=== PATIENT | male | born 1965 | race Caucasian/White ===

== ENCOUNTER → 2016-06-19 | Outpatient (CLI) | payer BC ==
[~2016-06-19] MED LIST: MULTTAB58 PO; OXYC-57 PO
[2016-06-19 10:00] LABS: BASO % 0.8 %; BASO ABS # 0.04 K/uL (0-0.2); COMPLETE YES; EOS % 2.1 %; HEMATOCRIT 43.9 % (42-52); IG% 0.2 %; LYMPH % 31.3 %; LYMPH ABS # 1.66 K/uL (1.2-3.4); MEAN CELL VOLUME 86.1 fL (80-100); MEAN CORPUSCULAR HEMOGLOBIN 29.8 pg (25-34); MEAN CORPUSCULAR HGB CONC 34.6 g/dl (32-36); MEAN PLATELET VOLUME 11.1 fL (7.4-10.4); MONO % 11.1 %; NEUT % 54.5 %; PLATELET COUNT 156 K/uL (130-400)
[2016-06-19 10:50] LABS: BLOOD UREA NITROGEN 14 mg/dl (7-18); BUN/CREATININE RATIO 16.2 (10-20); CARBON DIOXIDE 28 mmol/L (21-32); CHLORIDE 104 mmol/L (98-107); CREATININE 0.89 mg/dl (0.60-1.40); GLUCOSE 100 mg/dl (70-99); POTASSIUM 4.2 mmol/L (3.5-5.1); SODIUM 141 mmol/L (136-145)
== END | disposition home or self-care (01) ==
LOC: C.CPL 09:21
PROVIDERS: ATTEND Surgery
DX: K40.90 Unilateral inguinal hernia, without obstruction or gangrene, not specified as recurrent (principal); Z01.812 Encounter for preprocedural laboratory examination

== ENCOUNTER → 2016-06-26 | Day surgery (SDC) | payer BC ==
[2016-06-15 10:16] VITALS: Ht 170.2 cm; Wt 88.6 kg
[~2016-06-26] VITALS: Ht 170.2 cm; Wt 88.6 kg
[~2016-06-26] MED LIST changes: +ATROPINE SULFATE 0.1 MG/ML 5ML SYR IV PRN; +BACITRACIN 50000 UNIT VIAL ONE; +CEFAZOLIN SOD 1 GM VIAL ONE; +DEXAMETHASONE SOD INJ 4 MG/ML VIAL IV PRN; +DEXAMETHASONE SOD INJ 4 MG/ML VIAL ONE; +EpHEDrine SULFATE INJ 50 MG/ML AMP IV PRN; +EpHEDrine SULFATE INJ 50 MG/ML AMP ONE; +FENTANYL CITRATE INJ 50 MCG/1 ML 2 ML VIAL IV PRN; +FENTANYL CITRATE INJ 50 MCG/1 ML 2 ML VIAL ONE; +GLYCOPYRROLATE INJ 0.2 MG/ML VIAL ONE; +HYDROmorphone INJ 2 MG/ML SYR/VIAL IV PRN; +KETOROLAC TROMETHAMINE 30 MG/ML VIAL IV. PRN; +LABETALOL HCL IV 5 MG/ML 20ML IV PRN; +LACTATED RINGER'S 1000ML 1,000 ML IV ONE; +LACTATED RINGER'S 1000ML 1,000 ML IV SCH; +LIDOCAINE HCL 2% 2 ML VIAL (20MG/ML) ONE; +METOCLOPRAMIDE HCL INJ 5 MG/ML 2 ML VIAL IV PRN; +MIDAZOLAM HCL 1 MG/ML 2ML VIAL ONE; +MoRPHine SULFATE 10 MG/ML CARP/VIAL IV PRN; +NEOSTIGMINE METHYLSULFATE 5 MG/5 ML SYR ONE; +ONDANSETRON INJ 2 MG/ML 2 ML VIAL IV PRN; +ONDANSETRON INJ 2 MG/ML 2 ML VIAL ONE; +OXYCODONE/ACETAMINOPHEN 5-325 TAB PO PRN; +PHENYLEPHRINE 100MCG/ML 5ML SYR IV PRN; +PROPOFOL IV EMULSION 10 MG/ML 20 ML VIAL IV ONE; +ROCURONIUM BROMIDE 10 MG/ML 5 ML VIAL ONE; +SODIUM CHLORIDE 0.9% INJ 10 ML VIAL ONE
--- NOTE | 2016-06-26 06:35 | History & Physical Bridge Note ---
H&P Re-Evaluation Bridge Note: I have examined the patient, reviewed the History & Physical and in the interval since the performance of the History & Physical I have noted the following changes of clinical significance: No changes noted pt marked SO at bedside
[2016-06-26] MEDS: BUPIVACAINE 0.5 % 5 MG/1 ML MPF 30ML VIAL ONE ×2 (07:20→08:01)
--- NOTE | 2016-06-26 08:08 | [facility] Post Operative Brief Note ---
Immediate Operative Summary Operative Date Jun 26, 2016. Pre-Operative Diagnosis Left Inguinal Hernia Post-Operative Diagnosis left direct inguinal hernia Procedure(s) Performed Open Large Left Inguinal Hernia Repair With Marlex Mesh Surgeon Dr. Murry Size Tester Surgeon(s) None Estimated Blood Loss 5 ml Findings large left direct inguinal hernia Specimens None
--- NOTE | 2016-06-26 08:14 | Discharge Instructions ---
Discharge Instructions Visit Reason for Visit: Left Inguinal Hernia Discharge Discharge Diagnosis / Problem: s/p left direct ing hernia repair with mesh ( open) Discharge Goals Goal(s): Decrease discomfort Activity Recommendations Lifting Limitations: no more than 10 pounds Exercise/Sports Limitations: none May Resume Sexual Activity: when tolerated Shower/Bathe: no limitations Driving or Machine Use: for one week Anesthesia . Post Anesthesia Instructions: If you have had General Anesthesia or IV Sedation: * Do not drive today. * Resume driving when surgeon permits. * Do not make important decisions or sign legal documents today. * Call surgeon for: 1. Temperature elevations greater than 101 degrees F. 2. Uncontrollable pain. 3. Excessive bleeding. 4. Persistent nausea and vomiting. 5. Medication intolerance (nausea, vomiting or rash). * For nausea and vomiting use only clear liquids such as: tea, soda, bouillon until nausea subsides, then gradually increase diet as tolerated. * If you have any concerns or questions, call your surgeon's office. If physician is unavailable and it is an emergency, call 911 or go to the nearest emergency room. . Instructions / Follow-Up Instructions / Follow-Up call [phone] for any problems return office 1 week Procedures Procedures Performed: Open Large Left Inguinal Hernia Repair With Marlex Mesh Medical Emergencies . Who to Call and When: Medical Emergencies: If at any time you feel your situation is an emergency, please call 911 immediately. . Non-Emergent Contact . . "Provider Documentation" section prepared by Robby Murry.
[2016-06-26 09:05] VITALS: TEMP 36.7
--- NOTE | 2016-06-26 09:23 | Anesthesia Progress Nt - [facility] ---
Anesthesia Post Op Note Date & Time Jun 26, 2016 at 09:23 Vital Signs Pain Intensity: 4 Vital Signs Past 12 Hours Date Time Temp Pulse Resp B/P Pulse Ox O2 Delivery O2 Flow Rate FiO2 06/26/16 09:05 36.7 70 14 123/81 97 Room Air 06/26/16 08:55 36.5 06/26/16 08:54 60 18 94 06/26/16 08:54 60 18 06/26/16 08:53 125/75 06/26/16 08:49 60 17 92 06/26/16 08:49 60 17 06/26/16 08:48 135/76 06/26/16 08:44 60 12 93 06/26/16 08:44 59 12 06/26/16 08:43 130/77 06/26/16 08:39 60 13 94 06/26/16 08:39 60 13 06/26/16 08:38 115/70 06/26/16 08:34 72 22 96 06/26/16 08:34 72 22 06/26/16 08:33 125/74 06/26/16 08:31 Room Air 06/26/16 08:29 66 6 06/26/16 08:29 66 6 100 06/26/16 08:28 130/75 06/26/16 08:24 69 9 100 06/26/16 08:24 69 9 06/26/16 08:23 123/77 06/26/16 08:19 78 15 100 06/26/16 08:19 78 15 06/26/16 08:18 134/75 06/26/16 08:14 84 16 100 06/26/16 08:14 84 16 06/26/16 08:12 36.4 85 16 142/87 100 Diffusion Mask 5 06/26/16 06:38 36.6 57 122/76 96 Room Air Notes Mental Status: alert / awake / arousable, participated in evaluation Pt Amnestic to Procedure: Yes Nausea / Vomiting: adequately controlled Pain: adequately controlled Airway Patency, RR, SpO2: stable & adequate BP & HR: stable & adequate Hydration State: stable & adequate Anesthetic Complications: no major complications apparent
--- NOTE | 2016-06-26 09:24 | OPERATIVE REPORT ---
DATE OF OPERATION: 06/26/2016 SURGEON: Dr. Murry. PREOPERATIVE DIAGNOSIS: Left inguinal hernia. POSTOPERATIVE DIAGNOSIS: Large direct inguinal hernia. PROCEDURE: Open repair of left indirect inguinal hernia with Marlex mesh reinforcement. SUMMARY: The patient was brought into the operating room theater. Under general anesthesia, the left lower quadrant prepped with Betadine scrub and solution and properly draped. 5% Marcaine without epinephrine was used to infiltrate 2 fingerbreadths medial, anterior, superior iliac crest, preemptive local. Then an incision was made parallel to the inguinal ligament deep into subcutaneous tissue. Some larger vein ligated with 2-0 silk. We went onto the external oblique, elevated the external oblique to the external ring with a finger and then freed up all the fatty tissue around it, sufficient enough with more local underneath the external oblique. We then was opened along the course of its fibers. The nerve identified and retracted superiorly underneath hemostats. It was identified the patient had an incarcerated tissue in the external oblique and external ring. Once we were able to elevate this up from the floor, patient had a significant amount of fatty tissue that freed up from the cord structures and actually was all a direct area going down to the external ring. There was no indirect component. We returned this direct content in the retroperitoneal by using some fibers and using 3-0 interrupted silk sutures. Once we completed that area and we had the bulk of the fatty tissue which protruded almost about 6 or 7 [address] the way into the canal. We then brought a sheet of Marlex mesh and onlay down the symphysis pubis, shelving portion went above the conjoined tendon and reconstruct the internal ring that could only accommodate the tip of a hemostat. The nerve was placed along the cord again. The internal ring was checked and there was one area that seemed to be a little bit wider, we used an interrupted 3-0 silk suture on the mesh to reinforce and close it tighter. We irrigated the area. The external oblique was then closed completely on top of the mesh and the cord structure with 3-0 interrupted silk suture, subcutaneous tissue 3-0 Dexon and sujit for skin edges. Dressing was applied. The procedure was tolerated well by the patient. Estimated blood loss approximately 5 mL. The patient was taken to the recovery room in good condition. I attest to the content of the Intraoperative Record and any orders documented therein. Any exceptio ns are noted below.
[2016-06-26 09:48] VITALS: BP 144/84; PULSE 52; O2SAT 97
== END | disposition home or self-care (01) ==
LOC: X.SURG 06:23
PROVIDERS: ATTEND Surgery
DX: K40.90 Unilateral inguinal hernia, without obstruction or gangrene, not specified as recurrent (principal); J06.9 Acute upper respiratory infection, unspecified; E78.00 Pure hypercholesterolemia, unspecified; R73.9 Hyperglycemia, unspecified; Z98.890 Other specified postprocedural states

== ENCOUNTER 2019-12-09 13:13 | Inpatient (IN) ==
--- OUTSIDE RECORDS SUMMARY | 2019-12-09 13:14 | External Medical Summary | Continuity of Care Document ---
:1965 Author Name Robson Lyles, Provider Address Unavailable Unavailable , Care Team Providers Name Role Phone Jeanmarie Lyles, [email or web address] Leon Unavailable Unavailable Assessments Assessed Problems:Umbilical herniaVentral hernia Problems Encounter for screening for diabetes mellitus (V77.1) (Z13.1 ) Ventral hernia (553.20) (K43.9) Umbilical hernia (553.1) (K42.9) Inguinal hernia, left (550.90) (K40.90) Encounter for screening for lipoid disorders (V77.91) (Z13.2 20) Hyperglycemia (790.29) (R73.9) Hypercholesterolemia (272.0) (E78.00) Acute upper respiratory infection (465.9) (J06.9) Influenza vaccine needed (V04.81) (Z23) Allergies and Adverse Reactions No Known Drug Allergies (Allergy) Medications [place] 3 1000 MG Oral Capsule; daily Star t: 07-Mar-2018 Refills: 0 Multi-Vitamin Oral Tablet; TAKE 1 TABLET DAILY. Start: 27-Oct-2013 Refills: 0 Procedures Influenza vaccine needed History of Inguinal Hernia Repair Status : Completed 26-Jun-2016 0:00 Immunizations Influenza On: 03-Apr-2010 15:48 Lot #: [id number], [employer] Influenza On: 27-Mar-2011 9:50 Lot #: [id number], [employer] Tdap (Adacel) On: 31-Mar-2011 17:25 Lot #: [id number], [employer] Pneumococcal polysaccharide vaccine, 23 valent On: 17:24 Lot #: [id number], [employer] Influenza On: 07-Jun-2012 9:09 Lot #: [id number], [employer] Influenza On: 22-Mar-2014 Family History uncle Family history of Colon Cancer (V16.0) Status: Active Mother Family history of Arthritis (V17.7) Status: Active Father Family history of Diabetes Mellitus (V18.0) Status: Active Family history of Renal cell cancer (189.0) (C64.9) Status: Active FH: CABG (coronary artery bypass surgery) (V17.3) (Z82.49) S tatus: Active Family history of Polyps Of The Sigmoid Colon Status: Active Family history of cerebrovascular accident (CVA) (V17.1) (Z8 2.3) Status: Active Brother Family history of Family Health Status Of Brother - Good Sta tus: Active Sister Family history of Family Health Status Of Sister - Good Stat us: Active Social History - Smoking Status Never smoked tobacco Plan of Treatment Planned Observations Planned Goals not documented Results No Known Results Results not documented Encounters Appointment; Robby Murry M.D. 07-Mar-2018 9:50 Encounter Diagnosis: Problem not documented
--- OUTSIDE RECORDS SUMMARY | 2019-12-09 13:15 | External Medical Summary | Continuity of Care Document ---
:1965 Author Name Robson Lyles, Provider Address Unavailable Unavailable , Care Team Providers Name Role Phone Jeanmarie Lyles, [email or web address] Leon Unavailable Unavailable Assessments Assessed Problems:Umbilical herniaVentral hernia Problems Influenza vaccine needed (V04.81) (Z23) Acute upper respiratory infection (465.9) (J06.9) Hypercholesterolemia (272.0) (E78.00) Hyperglycemia (790.29) (R73.9) Encounter for screening for lipoid disorders (V77.91) (Z13.2 20) Inguinal hernia, left (550.90) (K40.90) Encounter for screening for diabetes mellitus (V77.1) (Z13.1 ) Umbilical hernia (553.1) (K42.9) Ventral hernia (553.20) (K43.9) Allergies and Adverse Reactions No Known Drug Allergies (Allergy) Medications Multi-Vitamin Oral Tablet; TAKE 1 TABLET DAILY. Start: 27-Oct-2013 Refills: 0 [place] 3 1000 MG Oral Capsule; daily Star t: 07-Mar-2018 Refills: 0 Procedures Influenza vaccine needed History of Inguinal Hernia Repair Status : Completed 26-Jun-2016 0:00 Immunizations Influenza On: 03-Apr-2010 15:48 Lot #: [id number], [employer] Influenza On: 27-Mar-2011 9:50 Lot #: [id number], [employer] Tdap (Adacel) On: 31-Mar-2011 17:25 Lot #: [id number], [employer] Pneumococcal polysaccharide vaccine, 23 valent On: 17:24 Lot #: [id number], [employer] Influenza On: 07-Jun-2012 9:09 Lot #: [id number], [employer] Influenza On: 22-Mar-2014 Family History [...]
[2019-12-09] MEDS ORDERED: ASPIRIN CHEW 324 MG PO STA (13:27)
[2019-12-09] MEDS ORDERED: NITROGLYCERIN SL 0.4 MG/TAB TAB SL PRN (13:27)
[2019-12-09] MEDS ORDERED: TICAGRELOR 90 MG TAB PO ONE (13:27)
[2019-12-09] MEDS ORDERED: NITROGLYCERIN SL 0.4 MG/TAB TAB ONE (13:28)
--- NOTE | 2019-12-09 13:35 | Emergency Department Note ---
History of Present Illness General Chief complaint: Shortness of Breath/Dyspnea Stated complaint: short of breath - tighness in chest Time Seen by Provider: 12/09/19 13:19 Source: patient Mode of arrival: ambulatory Limitations: no limitations History of Present Illness Provider complaint: Chest pain Maximum Pain Intensity: 2 This is a 54-year-old male who presents to the ED with a chief complaint of chest pain. The patient states that he started having chest pain this morning intermittently around 8:30 AM. 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 He has some associated shortness of breath. He describes the feelings in his chest like a full sensation and chest tightness. The patient denies any past medical history. Denies taking medicat ions. He denies smoking. The patient states that he did have some exertional chest discomfort a couple of days ago when he was taking a walk. His vital signs are normal. Home Medications Home Medications Medication Instructions Recorded Confirmed Type multivitamin 1 tab PO QAM 12/09/19 12/09/19 History Allergies Allergy/AdvReac Type Severity Reaction Status Date / Time No Known Allergies Allergy Unverified 06/26/16 06:46 Past Med/Surg History Social History Feels Safe at Home: Yes Smoking Status: Never smoker Review of Systems A total of 10 systems reviewed and were otherwise negative Physical Exam Vital Signs Vital Signs - 24 hr 12/09/19 13:14 12/09/19 13:24 12/09/19 13:26 Temperature 36.6 C Temperature Source Oral Pulse Rate 62 66 61 Pulse Rate from SpO2 Sensor 65 59 L Respiratory Rate 16 16 17 Blood Pressure 140/92 146/99 H Blood Pressure Mean 108 116 Pulse Oximetry 97 95 97 Oxygen Delivery Method Room Air Sepsis Recent Fever Within 48 Hours No Sepsis New/Unexplained Change in Mental Status No Sepsis Action Taken by Nursing No Action Required 12/09/19 13:30 Temperature Temperature Source Pulse Rate 67 Pulse Rate from SpO2 Sensor Respiratory Rate 18 Blood Pressure Blood Pressure Mean Pulse Oximetry Oxygen Delivery Method Sepsis Recent Fever Within 48 Hours Sepsis New/Unexplained Change in Mental Status Sepsis Action Taken by Nursing CONSTITUTIONAL/VITAL SIGNS: Reviewed / noted above. GENERAL: Non-toxic in appearance. INTEGUMENTARY: Warm, dry, and [place]. HEAD: Normocephalic. EYES: without scleral icterus or trauma. ENT/OROPHARYNX: clear and moist. LYMPHADENOPATHY/NECK: Is supple without lymphadenopathy or meningismus. RESPIRATORY: Lungs clear and equal. CARDIOVASCULAR: Regular rate and rhythm. GI/ABDOMEN: Soft and nontender. No organomegaly or pulsatile mass. No rebound or guarding. Normal bowel sounds. EXTREMITIES: Warm and well perfused. BACK: No CVA tenderness. NEUROLOGICAL: Intact without focal deficits. PSYCHIATRIC: normal affect. MUSCULOSKELETAL: Normally developed with good muscle tone. TRIAGE NURSING DOCUMENTATION REVIEWED. Course Administered Medications Nitroglycerin (Nitrostat) 0.4 mg SL UD PRN PRN Reason: Chest Pain Stop: 01/08/20 13:26 Last Admin: 12/09/19 13:30 Dose: 0.4 mg Documented by: [id number] Discontinued Medications Aspirin (Aspirin) 324 mg PO NOW STA Stop: 12/09/19 13:28 Last Admin: 12/09/19 13:31 Dose: 324 mg Documented by: [id number] Atropine Sulfate (Atropine Sulfate) Confirm Administered Dose 1 mg IV .STK-MED ONE Stop: 12/09/19 13:58 Last Admin: 12/09/19 14:20 Dose: 1 mg Documented by: [id number] Heparin Sodium/Sodium Chloride (Heparin/Nss 1000 Unit/500ml Flush Bag) Confirm Administered Dose 3,000 units IV .STK-MED ONE Stop: 12/09/19 13:40 Last Admin: 12/09/19 14:19 Dose: 3,000 units Documented by: [id number] Nicardipine HCl (Cardene) Confirm Administered Dose 25 mg .ROUTE .STK-MED ONE Stop: 12/09/19 13:39 Last Admin: 12/09/19 14:19 Dose: 25 mg Documented by: [id number] Nitroglycerin (Nitrostat) Confirm Administered Dose 0.4 mg .ROUTE .STK-MED ONE Stop: 12/09/19 13:29 Last Admin: 12/09/19 13:30 Dose: Not Given Documented by: [id number] Nitroglycerin/Dextrose (Nitroglycerin/D5w 100 Mcg/Ml 20ml Syringe) Confirm Administered Dose 2,000 mcg .ROUTE .STK-MED ONE Stop: 12/09/19 13:40 Last Admin: 12/09/19 14:20 Dose: 2,000 mcg Documented by: [id number] Ticagrelor (Brilinta) 180 mg PO ONE ONE Stop: 12/09/19 13:28 Last Admin: 12/09/19 13:31 Dose: 180 mg Documented by: [id number] Critical Care Time Critical Care Time: Yes Total Critical Care Time: 30 I have personally spent 30 minutes of critical care time in the direct management of this patient. This includes bedside care, interpretation of diagnostic studies, and testing, discussion with consultants, patient, and [facility] members, and other required patient management activities. This 30 minutes is in excess of all separately billable procedures. Medical Decision Making Differential Diagnosis The differential that was considered includes acute myocardial infarction, acute coronary syndrome, myocarditis, pericarditis, pericardial effusions /tamponade, esophageal perforation, thoracic aortic dissection, pulmonary embolism, pneumonia, pneumothorax, pancreatitis, shingles, acute cholecystitis, perforated abdominal viscus. Medical Records Attestation: I reviewed the patient's medical records. Home Medications Current Medication List: was personally reviewed by me Laboratory Data Attestation: I reviewed the patient's lab results. Result diagrams: 12/09/19 13:29 12/09/19 13:29 Lab Results 12/09/19 12/09/19 12/09/19 Range/Units 13:29 13:29 13:29 WBC 7.12 (4.8-10.8) K/uL RBC 5.01 (4.7-6.1) M/uL Hgb 15.0 (14.0-18.0) g/dL POC Hgb (14.0-18.0) g/dl Hct 43.3 (42-52) % POC Hct (42-52) % MCV 86.4 (80-100) fL MCH 29.9 (25-34) pg MCHC 34.6 (32-36) g/dL RDW Std Deviation 41.4 (36.4-46.3) fL RDW Coeff of Glenny 13.1 (11.5-14.5) % Plt Count 155 (130-400) K/uL MPV 10.4 (7.4-10.4) fL Immature Gran % (Auto) 0.4 % Neut % (Auto) 59.6 % Lymph % (Auto) 26.8 % [place] % (Auto) 10.5 % Eos % (Auto) 2.4 % Baso % (Auto) 0.3 % Neut # (Auto) 4.24 (1.4-6.5) K/uL Lymph # (Auto) 1.91 (1.2-3.4) K/uL [place] # (Auto) 0.75 H (0.11-0.59) K/uL Eos # (Auto) 0.17 (0-0.5) K/uL Baso # (Auto) 0.02 (0-0.2) K/uL Immature Gran # (Auto) 0.03 H (0.00-0.02) K/uL PT 10.6 (9.0-12.0) Seconds INR 1.0 (0.9-1.1) APTT 21.8 (21.0-31.0) Seconds PTT Ratio 0.8 POC Sodium (135-144) mmol/L Sodium 140 (136-145) mmol/L POC Potassium (3.3-5.0) mmol/L Potassium 3.9 (3.5-5.1) mmol/L POC Chloride (101-112) mmol/L Chloride 107 (98-107) mmol/L Carbon Dioxide 28 (21-32) mmol/L POC Total CO2 (24-31) mmol/L Anion Gap 5.0 (3-11) POC Anion Gap (16-25) mmol/L POC BUN (7-18) mg/dl BUN 14 (7-18) mg/dl Creatinine 1.00 (0.6-1.4) mg/dl POC Creatinine (0.6-1.3) mg/dl Est Cr Clr Drug Dosing 91.2 ml/min Est GFR ( Amer) 97.8 Est GFR (Non-Af Amer) 84.4 BUN/Creatinine Ratio 13.8 (10-20) Glucose 105 H (70-99) mg/dl POC Glucose (other) (70-99) mg/dl Calcium 9.3 (8.5-10.1) mg/dl POC Ioniz Calcium Estela (1.12-1.32) mmol/l Total Bilirubin 0.8 (0.2-1) mg/dl AST 19 (15-37) U/L ALT 35 (12-78) U/L Alkaline Phosphatase 55 (45-117) U/L Total Creatine Kinase 154 (39-308) U/L CK-MB (CK-2) 2.2 (0.5-3.6) ng/ml CK/CKMB % Calc 1.4 (0-3.0) POC Troponin I (0-0.045) ng/ml Troponin I 0.092 H* (0-0.045) ng/ml Total Protein 7.6 (6.4-8.2) gm/dl Albumin 4.3 (3.4-5.0) gm/dl Globulin 3.3 (2.5-4.0) gm/dl Albumin/Globulin Ratio 1.3 (0.9-2) 12/09/19 12/09/19 Range/Units 13:40 13:41 WBC (4.8-10.8) K/uL RBC (4.7-6.1) M/uL Hgb (14.0-18.0) g/dL POC Hgb 13.9 L (14.0-18.0) g/dl Hct (42-52) % POC Hct 41 L (42-52) % MCV (80-100) fL MCH (25-34) pg MCHC (32-36) g/dL RDW Std Deviation (36.4-46.3) fL RDW Coeff of [place]enny (11.5-14.5) % Plt Count (130-400) K/uL MPV (7.4-10.4) fL Immature Gran % (Auto) % Neut % (Auto) % Lymph % (Auto) % [place] % (Auto) % Eos % (Auto) % Baso % (Auto) % Neut # (Auto) (1.4-6.5) K/uL Lymph # (Auto) (1.2-3.4) K/uL [place] # (Auto) (0.11-0.59) K/uL Eos # (Auto) (0-0.5) K/uL Baso # (Auto) (0-0.2) K/uL Immature Gran # (Auto) (0.00-0.02) K/uL PT (9.0-12.0) Seconds INR (0.9-1.1) APTT (21.0-31.0) Seconds PTT Ratio POC Sodium 142 (135-144) mmol/L Sodium (136-145) mmol/L POC Potassium 4.0 (3.3-5.0) mmol/L Potassium (3.5-5.1) mmol/L POC Chloride 104 (101-112) mmol/L Chloride (98-107) mmol/L Carbon Dioxide (21-32) mmol/L POC Total CO2 26 (24-31) mmol/L Anion Gap (3-11) POC Anion Gap 17.0 (16-25) mmol/L POC BUN 14 (7-18) mg/dl BUN (7-18) mg/dl Creatinine (0.6-1.4) mg/dl POC Creatinine 1.0 (0.6-1.3) mg/dl Est Cr Clr Drug Dosing ml/min Est GFR ( Amer) Est GFR (Non-Af Amer) BUN/Creatinine Ratio (10-20) Glucose (70-99) mg/dl POC Glucose (other) 111 H (70-99) mg/dl Calcium (8.5-10.1) mg/dl POC Ioniz Calcium [place] 1.21 (1.12-1.32) mmol/l Total Bilirubin (0.2-1) mg/dl AST (15-37) U/L ALT (12-78) U/L Alkaline Phosphatase (45-117) U/L Total Creatine Kinase (39-308) U/L CK-MB (CK-2) (0.5-3.6) ng/ml CK/CKMB % Calc (0-3.0) POC Troponin I 0.06 H (0-0.045) ng/ml Troponin I (0-0.045) ng/ml Total Protein (6.4-8.2) gm/dl Albumin (3.4-5.0) gm/dl Globulin (2.5-4.0) gm/dl Albumin/Globulin Ratio (0.9-2) Imaging Data Attestation: I personally reviewed and interpreted this imaging study as follows: My Impression: Chest x-ray: Per my review there is no pneumothorax, pneumonia or acute cardiopulmonary process. Radiologist's Impression: SINGLE VIEW CHEST CLINICAL HISTORY: chest pain. FINDINGS: An AP, portable, upright chest radiograph is compared to study dated 07/08/2010. The heart is top normal for projection. The mediastinal contour is within normal limits. The lungs and pleural spaces are clear. No pneumothorax is seen. The bony thorax is grossly intact. IMPRESSION: No active disease in the chest. ECG Data Attestation: I personally reviewed and interpreted this ECG as follows: Indication: + chest pain Rate (beats per minute): 68 Rhythm: + normal sinus ECG ST segments: + ST depression (Lateral) and + ST elevation (Inferior) ECG Findings: no PVCs Blood Pressure Blood Pressure Findings: Elevated blood pressure Blood Pressure Disposition: further management by hospitalist GONZALEZ Narrative This is a 54-year-old male who presents to the ED with a chief complaint of chest pain. The patient states that he started having chest pain this morning intermittently around 8:30 AM. 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 He has some associated shortness of breath. He describes the feelings in his chest like a full sensation and chest tightness. The patient denies any past medical history. Denies taking medications. He denies smoking. The patient states that he did have some exertional chest discomfort a couple of days ago when he was taking a walk. His vital signs are normal. The patient is blood pressure slightly elevated otherwise unremarkable vital signs. His twelve-lead EKG shows a sinus rhythm with inferior ST elevations with T wave inversions laterally consistent with an acute inferior wall OK. After the EKG was done, the heart alert was called. T he patient was given aspirin 324 mg p.o. He was also given Brilinta 180 mg p.o. and nitro sublingual. The patient's CBC was unremarkable. His chemistry panel was unremarkable. The troponin is slightly elevated at 0.092. Chest x-ray did not show any acute process. The patient was seen in the emergency department by Dr. Dobbs and taken to the [facility] for further intervention. Impression & Plan ST elevation (STEMI) myocardial infarction involving right coronary artery Discharge Plan Visit Data *Final* Discharge Date/Time: 12/09/19 13:50 Chief Complaint: Shortness of Breath/Dyspnea Stated Complaint: short of breath - tighness in chest ED Provider: Victor Manuel Lerma Discharge Problem: ST elevation (STEMI) myocardial infarction involving right coronary artery Patient Disposition: Still a Patient Discharge Instructions Interventions: ED Discharge Assessment Last Done: 12/09/19 13:50
[2019-12-09] MEDS ORDERED: NiCARDipine HCL INJ 2.5 MG/ML 10 ML AMP ONE (13:38)
[2019-12-09] MEDS ORDERED: HEPARIN (PORCINE) 1000 UNIT/ML 10 ML (CATH LAB USE ONLY) ONE ×2 (13:38→14:34)
[2019-12-09] MEDS ORDERED: fentaNYL citrate 100 MCG/2 ML VIAL ONE (13:38)
[2019-12-09 13:39] LABS: Basophils # (auto) 0.02 K/uL (0-0.2); Basophils % (auto) 0.3 %; Eosinophils # (auto) 0.17 K/uL (0-0.5); Eosinophils % (auto) 2.4 %; Hematocrit (blood only) 43.3 % (42-52); Immature Granulocytes # (auto) 0.03 K/uL (0.00-0.02); Immature Granulocytes % (auto) 0.4 %; Lymphocytes # (auto) 1.91 K/uL (1.2-3.4); Lymphocytes % (auto) 26.8 %; Mean Corpuscular Hemoglobin 29.9 pg (25-34); Mean Corpuscular Hgb Conc 34.6 g/dL (32-36); Mean Corpuscular Volume 86.4 fL (80-100); Mean Platelet Volume 10.4 fL (7.4-10.4); Monocytes # (auto) 0.75 K/uL (0.11-0.59); Monocytes % (auto) 10.5 %; Neutrophils # (auto) 4.24 K/uL (1.4-6.5); Neutrophils % (auto) 59.6 %; Platelet Count 155 K/uL (130-400); RDW Coefficient of Variation 13.1 % (11.5-14.5); RDW Standard Deviation 41.4 fL (36.4-46.3); Red Blood Count 5.01 M/uL (4.7-6.1); White Blood Count 7.12 K/uL (4.8-10.8)
[2019-12-09] MEDS ORDERED: NITROGLYCERIN/D5W 100MCG/ML 20ML SYR ONE (13:39)
[2019-12-09] MEDS ORDERED: MIDAZOLAM HCL 1 MG/ML 2ML VIAL ONE (13:39)
--- NOTE | 2019-12-09 13:43 | XRay Report ---
SINGLE VIEW CHEST CLINICAL HISTORY: Atypical chest pain. FINDINGS: An AP, portable, upright chest radiograph is compared to study dated 07/08/2010. The heart is top normal for projection. The mediastinal contour is within normal limits. The lungs and pleural sp aces are clear. No pneumothorax is seen. The bony thorax is grossly intact. IMPRESSION: No active disease in the chest. ACT 112: Negative or not required by law. Electronically signed by: Anthony Carrasco M.D. 12/09/2019 1:42 PM
[2019-12-09 13:54] LABS: iSTAT Hemoglobin 13.9 g/dl (14.0-18.0); iSTAT Ionized Calcium 1.21 mmol/l (1.12-1.32)
--- NOTE | 2019-12-09 13:55 | Pre Anesthesia Assessment ---
Date of Service December 09, 2019 Pre Sedation Assessment Vital Signs Temp Pulse Resp BP Pulse Ox 12/09/19 13:30 67 18 12/09/19 13:26 61 17 146/99 H 97 12/09/19 13:24 66 16 95 12/09/19 13:14 97.9 F 62 16 140/92 97 Cardiovascular RRR, no murmur, no edema Respiratory normal respiratory effort, lungs clear to auscultation Pre-Sedation Airway Assessment Smoking Status: Never smoker Hx Sleep Apnea: No Hx Difficult Intubation: No Short, Thick Neck: No Thyromental Distance: > or= 3.5 Finger Breadths Oral Cavity: + WNL Mallampati Class: III ASA: ASA3 Procedure Planning Contraindications for Sedation: none Current Medications Reviewed: Yes Notes The planned sedation has been discussed with the patient. Informed Consent was obtained. I have identified the patient, determined the appropriateness of sedation and have assessed the patient immediately prior to the procedure. All medicine(s) and interventions are by my order.
[2019-12-09 13:57] LABS: Albumin Level 4.3 gm/dl (3.4-5.0); BUN Creatinine Ratio 13.8 (10-20); Calcium 9.3 mg/dl (8.5-10.1); Creatinine Clr Calc Pharmacy 91.2 ml/min; Est GFR (African American) 97.8; Est GFR (Non-African American) 84.4; Potassium 3.9 mmol/L (3.5-5.1)
[2019-12-09] MEDS ORDERED: ATROPINE SULFATE 0.1 MG/ML 10ML SYR IV ONE (13:57)
--- NOTE | 2019-12-09 13:59 | Cardiology Consultation ---
Date of Consultation December 09, 2019 Assessment & Plan (1) Inferior MD: Presentation consistent with inferior STEMI and recommend proceeding with emergent cardiac catheterization and likely primary PCI. No apparent contraindications to procedure. Discussed risks, benefits, alternatives of procedure with patient and they are willing to proceed. Given ticagrelor 180 mg in the ED. Further recommendations pending findings of coronary angiography. History of Present Illness History of Present Illness 54-year-old man here with acute chest pain and ECG concerning for acute MD. Patient seen emergently in the ED after heart alert activated upon arrival. No prior cardiac history. Denies any medical problems and is on no medications. Initial chest pain when he woke up this morning but then resolved. Later in the day he was working on his truck in the heat and chest pain recurred. Chest pain is been persistent at its worse 7 out of 10 and has lasted for about 3 hours. Denies similar symptoms in the past. Chest pain at time of arrival 7/10, down to 5 out of 10 now after sublingual nitroglycerin. Hemodynamically stable. EKG showed sinus rhythm with inferior ST elevations. Allergies Allergy/AdvReac Type Severity Reaction Status Date / Time No Known Allergies Allergy Unverified 06/26/16 06:46 Home Medications Home Medications Medication Instructions Recorded Confirmed Type multivitamin 1 tab PO QAM 12/09/19 12/09/19 History Patient History Social History Feels Safe at Home: Yes Smoking Status: Never smoker Review of Systems Review of Systems: Not obtained in the setting of emergent situation Physical Exam Physical Exam: General: Appears comfortable HEENT: Sclerae anicteric, mucous membranes moist Lungs: Clear to auscultation bilaterally, no rhonchi or wheezes Cardiac: Regular rate and rhythm, no murmurs. Abdomen: Soft, nontender, nondistended, positive bowel sounds. Extremities: Warm, well perfused, no edema. 2+ radial pulses Skin: No rashes or lesions. Neuro: Nonfocal Psych: Alert orient x3, normal affect and mood Results & Data ([facility]) Vital Signs (Past 12 Hours) Vital Signs Temp Pulse Resp BP Pulse Ox 12/09/19 13:30 67 18 12/09/19 13:26 61 17 146/99 H 97 12/09/19 13:24 66 16 95 12/09/19 13:14 97.9 F 62 16 140/92 97 PG Care Time/CCT Total # of Minutes Spent Total Time Spent with Patient: Total time spent is greater than 50% in coordination of care (as documented) at patient's floor/unit and/or counseling patient: Coding Level of Care Code 92177 Inpt Consult Level 5 Diagnoses Inferior MD I21.19
[2019-12-09 14:00] LABS: Partial Thromboplastin Ratio 0.8; Partial Thromboplastin Time 21.8 Seconds (21.0-31.0); Prothrombin Time 10.6 Seconds (9.0-12.0)
[2019-12-09 14:07] LABS: Albumin Globulin Ratio 1.3 (0.9-2); Bilirubin,Total 0.8 mg/dl (0.2-1); Creatine Kinase MB 2.2 ng/ml (0.5-3.6); Globulin 3.3 gm/dl (2.5-4.0); Total Protein 7.6 gm/dl (6.4-8.2); Troponin I 0.092 ng/ml (0-0.045)
[2019-12-09] MEDS ORDERED: ATROPINE SULFATE 0.1 MG/ML 10ML SYR IV PRN (15:14)
[2019-12-09] MEDS ORDERED: ACETAMINOPHEN 325 MG TAB PO PRN (15:14)
[2019-12-09] MEDS ORDERED: ONDANSETRON INJ 2 MG/ML 2 ML VIAL IV PRN (15:14)
[2019-12-09] MEDS ORDERED: ICU PROTOCOL FOR HYPERGLYCEMIA PRN (15:19)
--- NOTE | 2019-12-09 15:41 | Cardiac Catheterization ---
[facility] Data: Reporter Cardiac Status Clinical evaluation leading to the procedure CAD Presenation: STEMI Anginal Classification: CCS IV Heart Failure: No Cardiogenic Shock within 24 Hours: No Cardiac Arrest within 24 Hours: No Imaging Studies Past 6 Months: No Stress Studies Past 6 Months: No Diagnostic Physicians Name: Bobo Dobbs MD Status: Emergency Closure Device Percutaneous Entry Location: Radial Closure Device: Radial Band Recommendations: PCI without planned CABG PCI Indication: Immediate PCI for STEMI First Noted: First EKG Lesion Segment Name: Distal RCA Culprit Artery: Yes Stenosis Prior to Rx (%): 100 Chronic Total Occlusion: No IVUS: No FFR: No Pre-Procedure JOVANY Flow: 0 Lesion Length (mm): 22 Thrombus Present: Yes Bifurcation Lesion: Yes Guidewire Across Lesion: Stenosis Post-Procedure (%): 0 Post-Procedure JOVANY Flow: 3 Devices(s) Deployed: Yes Yes Intraprocedure Events Significant Disection: No Perforation: No Cardiac Cath Procedure Full Procedure Date December 09, 2019 Pre-Procedure Diagnosis Pre-Procedure Diagnosis: STEMI AUC Score AUC Score: 9 Post-Procedure Diagnosis Post-Procedure Diagnosis: Severe CAD, Successful PCI, Decreased LV Systolic Function and Normal Intracardiac Pressures Procedure(s) Performed Procedure(s) Performed: Coronary Angiography, Left Heart Cath, LV Angiography and Drug Eluting Stent Director Of [employer] Bobo Dobbs MD Earring Maker(s) Lottie Estimated Blood Loss Estimated Blood Loss: 20 Medication(s) Medication(s): Fentanyl, Heparin, Lidocaine 1%, Nicardipine, Nitroglycerin and Versed Medication(s): Ticagrelor Summary of Findings Indication: STEMI/Heart Alert Access: 6 Fr slender right radial artery Catheters: Ikari left 3.5 guide Findings: LM -medium caliber, long vessel, 30 to 40% mid to distal disease LAD -medium caliber, proximal luminal regularities, diffuse 20 to 30% mid segment disease, distal vessel tapers prior to apex Circumflex -medium caliber, 30 to 40% ostial, 40 to 50% diffuse mid segment disease, medium left PLB without significant disease [place] caliber, diffuse mild mid segment disease RCA -medium caliber, dominant, 90% lateproximal, diffuse mild disease extending from mid to distal segment, 100% acute occlusion just prior to bifurcation with PDA and small right PLB LVEDP -11 -- PCI -- Antithrombotic therapy: Heparin, ticagrelor Procedure: RCA cannulated with Ikari left 3.5 guide BMW wire passed across lesion into distal vessel Distal RCA lesion predilated with 2.5 compliant plaster block layer 50 wire placed into right PLB Ostium of right PLB dilated gently with 2.5 balloon Dilated distal RCA lesion stented with 2.5 x 26 mm Mal drug-eluting extending into PDA Stent postdilated with stent balloon Proximal to mid segment stented with 3.5 x 22 mm [place] drug-eluting stent Stent post-dilated with 3.5 noncompliant balloon IC vasodilators administered for spasm Noted to have a hazy/dissection involving the proximal edge of distal stent. Third drug-eluting stent (2.5 x 12 Mal) placed to distal RCA overlapping dissection and proximal aspect of initial stent. Post procedure JOVANY 3 flow, stent well expanded with minimal residual stenosis and no apparent cardiac complications. Severe residual stenosis at ostium of small right PLB with JOVANY I-II flow Arterial Closure: TR band Summary: 1. Inferior STEMI 2. 90% lateproximal RCA stenosis, 100% acute distal RCA occlusion 3. Moderate multi-vessel non-culprit coronary artery disease -30 to 40% distal left main 40 to 50% diffuse mid circumflex 4. Normal intracardiac filling pressure 5. Successful PCI of proximal RCA stenosis and distal RCA acute occlusion with 3 total [place] drug-eluting stents (proximal 3.5 x 22, distal overlapping 2.5 x 12, 2.5 x 26 extending into PDA). Recommendations: Admit to ICU for continued monitoring Loaded with ticagrelor 180 mg Continue dual-antiplatelet therapy for at least 1 year. Trend troponins until peak, Check Echo Uptitrate beta-tushar/RE as BP allows High-dose statin Consult cardiac Rehab Hemodynamics Rest Ao:: 127/72/101 Final Ao: 126/52/82 LV: 104/11 Recommendations Recommendations: PCI without planned CABG Specimens Specimens: None Radiation Exposure (mGy) 2998 Contrast (mls) 150 Fluids (cc crystalloids) Fluids (cc crystalloids): 91 Drains Drains: None Anesthesia Moderate Procedural Complication(s) None Disposition ICU I attest to the content of the Intraoperative Record and any orders documented therein. Any exceptions are noted below. [employer] Card Cath Procedure Codes Cardiac Catheterization Procedure 1: Cardiovascular Cath Procedures: 30525 Coronaries and LHC (+/-LV) Moderate Sedation Procedure 1: Sedation/Anesthesia: 59608 Mod Sedation by the same physician;Init15 Min Child Age 5 & Up Procedure 2: Sedation/Anesthesia: 83652 Mod Sedation by the same physician; Ea [id number] Minutes Stenting Procedure 1: Cardiovascular Stent Procedures: 10125 Perc transluminal revascularization of acute sub/total occl, aMI PG Care Time/CCT Total # of Minutes Spent Total Time Spent with Patient: Total time spent is greater than 50% in coordination of care (as documented) at patient's floor/unit and/or counseling patient:
[2019-12-09] MEDS ORDERED: SODIUM CHLORIDE 0.9% 1000ML 1,000 ML IV SCH (15:45)
--- NOTE | 2019-12-09 20:22 | History & Physical Report ---
Date of Service December 09, 2019 Assessment & Plan (1) Inferior OR: STEMI involving right coronary artery/inferior OR- Patient status post cardiac catheterization for RCA 90% proximal lesion and distal occlusion. Status post 1 proximal and 2 distal stent deployments. Patient seen post procedure with no complaints. Post cardiac catheterization routine orders per Dr. Dobbs. Check hemoglobin A1c and fasting lipid panel. High-dose statin, aspirin and Brilinta as noted. Present on Admission?: Yes (2) ST elevation (STEMI) myocardial infarction involving right coronary artery: See above Present on Admission?: Yes (3) Admitted to intensive care unit: Patient was admitted to intensive care unit for follow-up of cardiac clive terization with deployment of [address] Bobo Dobbs, interventional cardiology. Consult to picker and sorter load and unload Dr. Pedro Biggs. Present on Admission?: Yes Admission and Anticipated Discharge Date Admission Date: December 09, 2019 History of Present Illness Chief Complaint: The patient was declared a heart alert, after presenting to the emergency department with shortness of breath, dyspnea on exertion and tightness in his chest, and EKG suggesting an acute inferior wall OR. Primary Care Provider: Betty De Leon The patient is a 54-year-old male with no significant past medical history who presented to the emergency department the above symptoms. He was taken emergently to the Pressure Welder by Dr. Bobo Dobbs, where 1 proximal and 2 distal stents were placed in the RCA, and the patient was then admitted to the ICU symptom-free. Allergies Allergy/AdvReac Type Severity Reaction Status Date / Time No Known Allergies Allergy Unverified 06/26/16 06:46 Home Medications Home Medications Medication Instructions Recorded Confirmed Type multivitamin 1 tab PO QAM 12/09/19 12/09/19 History Past Med/Surg History Social History Preferred Language: Cape Verdean Communication Ability: Effective Java Software Required: No Beliefs That Will Affect Care: None Current Living Situation: Spouse Other Information That Helps Us Care for You: No Feels Safe at Home: Yes Safety Concerns: Feels Safe At This Time Smoking Status: Never smoker Do You Dip or Chew Tobacco: No ; Second Hand Exposure: No ; Tobacco Cessation Education Requested by Patient: No Hx Alcohol Use: Yes Hx Substance Use: No Review of Systems Review of Systems: Post catheterization, the patient denies chest pain, palpitations, shortness of breath, dyspnea on exertion, cough, lower extremity swelling, sore throat, fevers, chills, sweats, weight change, fatigue, nausea, vomiting, diarrhea , constipation, abdominal pain, pelvic pain, blood in urine or stool, dysuria, urinary frequency or urgency, lightheadedness, dizziness, headache, memory loss, imbalance, focal or generalized weakness, numbness or tingling in arms or legs, generalized arthralgias or myalgias, back or neck pain, or night sweats. The review of systems is otherwise negative other than for that already noted above, and at least 10 systems have been reviewed. Physical Exam Physical Exam: The patient is awake, alert and oriented 3, well developed and well nourished, normocephalic and atraumatic, lying in bed and in no acute distress. HEENT--PERRL, EOMI, mucous membranes and oropharynx normal. Neck--supple. No JVD. No bruits. Thyroid normal, trachea midline, no adenopathy. Heart--normal S1 and S2. No murmurs, rubs or gallops. Lungs--clear bilaterally, no respiratory distress, no accessory muscle use. Abdomen--normal bowel sounds and soft. Nontender. Nondistended. Mildly obese Extremities--no cyanosis or clubbing. No edema. Dermatologic--normal skin turgor, normal color, no abnormal lymph nodes, no rash. Neurologic--cranial nerves II through XII grossly intact. Rheumatologic--normal range of motion. Psychiatric--normal affect. Results & Data Results & Data ([facility]) Vital Signs (Past 12 Hours) Vital Signs Temp Pulse Pulse Resp BP BP Pulse Ox 12/09/19 19:59 98.1 F 56 L 18 139/82 96 12/09/19 18:12 54 L 20 127/82 98 12/09/19 17:57 57 L 13 133/79 97 12/09/19 17:42 60 19 137/82 97 12/09/19 17:27 59 L 14 134/85 96 12/09/19 17:12 85 21 116/67 97 12/09/19 16:57 77 20 154/62 H 96 12/09/19 16:41 65 20 126/82 97 12/09/19 16:28 77 20 122/94 97 12/09/19 16:12 60 23 128/85 95 12/09/19 16:00 60 19 96 12/09/19 15:57 82 24 142/97 H 96 12/09/19 15:45 70 21 95 12/09/19 15:42 79 17 125/82 95 12/09/19 15:26 78 18 126/84 96 12/09/19 15:12 98.4 F 81 23 136/73 94 12/09/19 13:30 67 18 12/09/19 13:26 61 17 146/99 H 97 12/09/19 13:24 66 16 95 12/09/19 13:14 97.9 F 62 16 140/92 97 Laboratory Results Laboratory Results WBC 7.12 K/uL (4.8-10.8) 12/09/19 13:29 RBC 5.01 M/uL (4.7-6.1) 12/09/19 13:29 Hgb 15.0 g/dL (14.0-18.0) 12/09/19 13:29 POC Hgb 13.9 g/dl (14.0-18.0) L 12/09/19 13:40 Hct 43.3 % (42-52) 12/09/19 13:29 POC Hct 41 % (42-52) L 12/09/19 13:40 MCV 86.4 fL (80-100) 12/09/19 13:29 MCH 29.9 pg (25-34) 12/09/19 13:29 MCHC 34.6 g/dL (32-36) 12/09/19 13:29 RDW Std Deviation 41.4 fL (36.4-46.3) 12/09/19 13:29 RDW Coeff of Glenny 13.1 % (11.5-14.5) 12/09/19 13:29 Plt Count 155 K/uL (130-400) 12/09/19 13:29 MPV 10.4 fL (7.4-10.4) 12/09/19 13:29 Immature Gran % (Auto) 0.4 % 12/09/19 13:29 Neut % (Auto) 59.6 % 12/09/19 13:29 Lymph % (Auto) 26.8 % 12/09/19 13:29 [place] % (Auto) 10.5 % 12/09/19 13:29 Eos % (Auto) 2.4 % 12/09/19 13:29 Baso % (Auto) 0.3 % 12/09/19 13:29 Neut # (Auto) 4.24 K/uL (1.4-6.5) 12/09/19 13:29 Lymph # (Auto) 1.91 K/uL (1.2-3.4) 12/09/19 13:29 [place] # (Auto) 0.75 K/uL (0.11-0.59) H 12/09/19 13:29 Eos # (Auto) 0.17 K/uL (0-0.5) 12/09/19 13:29 Baso # (Auto) 0.02 K/uL (0-0.2) 12/09/19 13:29 Immature Gran # (Auto) 0.03 K/uL (0.00-0.02) H 12/09/19 13:29 PT 10.6 Seconds (9.0-12.0) 12/09/19 13:29 INR 1.0 (0.9-1.1) 12/09/19 13:29 APTT 21.8 Seconds (21.0-31.0) 12/09/19 13:29 PTT Ratio 0.8 12/09/19 13:29 Activ Coag Time Kaolin 241 SECONDS (94-140) H 12/09/19 14:45 POC Sodium 142 mmol/L (135-144) 12/09/19 13:40 Sodium 140 mmol/L (136-145) 12/09/19 13:29 POC Potassium 4.0 mmol/L (3.3-5.0) 12/09/19 13:40 Potassium 3.9 mmol/L (3.5-5.1) 12/09/19 13:29 POC Chloride 104 mmol/L (101-112) 12/09/19 13:40 Chloride 107 mmol/L (98-107) 12/09/19 13:29 Carbon Dioxide 28 mmol/L (21-32) 12/09/19 13:29 POC Total CO2 26 mmol/L (24-31) 12/09/19 13:40 Anion Gap 5.0 (3-11) 12/09/19 13:29 POC Anion Gap 17.0 mmol/L (16-25) 12/09/19 13:40 POC BUN 14 mg/dl (7-18) 12/09/19 13:40 BUN 14 mg/dl (7-18) 12/09/19 13:29 Creatinine 1.00 mg/dl (0.6-1.4) 12/09/19 13:29 POC Creatinine 1.0 mg/dl (0.6-1.3) 12/09/19 13:40 Est Cr Clr Drug Dosing 91.2 ml/min 12/09/19 13:29 Est GFR ( Amer) 97.8 12/09/19 13:29 Est GFR (Non-Af Amer) 84.4 12/09/19 13:29 BUN/Creatinine Ratio 13.8 (-20) 12/09/19 13:29 Glucose 105 mg/dl (70-99) H 12/09/19 13:29 POC Glucose 100 mg/dl (70-99) H 12/09/19 16:06 POC Glucose (other) 111 mg/dl (70-99) H 12/09/19 13:40 Calcium 9.3 mg/dl (8.5-10.1) 12/09/19 13:29 POC Ioniz Calcium [place]ela 1.21 mmol/l (1.12-1.32) 12/09/19 13:40 Total Bilirubin 0.8 mg/dl (0.2-1) 12/09/19 13:29 AST 19 U/L (15-37) 12/09/19 13:29 ALT 35 U/L (12-78) 12/09/19 13:29 Alkaline Phosphatase 55 U/L (45-117) 12/09/19 13:29 Total Creatine Kinase 154 U/L (39-308) 12/09/19 13:29 CK-MB (CK-2) 2.2 ng/ml (0.5-3.6) 12/09/19 13:29 CK/CKMB % Calc 1.4 (0-3.0) 12/09/19 13:29 POC Troponin I 0.06 ng/ml (0-0.045) H 12/09/19 13:41 Troponin I 0.092 ng/ml (0-0.045) H* 12/09/19 13:29 Total Protein 7.6 gm/dl (6.4-8.2) 12/09/19 13:29 Albumin 4.3 gm/dl (3.4-5.0) 12/09/19 13:29 Globulin 3.3 gm/dl (2.5-4.0) 12/09/19 13:29 Albumin/Globulin Ratio 1.3 (0.9-2) 12/09/19 13:29 Nasal Screen MRSA (PCR) Negative (Negative) 12/09/19 15:25 Diagnostic Findings [place], [place] [phone] XRay Report Patient: DANNY ELLIS Date: 12/09/19 MR#: [id number]: [address] Acct ID:[id number]: Date: 1965City Zip: [place] [address] Age: 54Location: ED Sex: M Room/Bed: Att Phy:Diagnosis: short of breath - tighness in chest Kesha Phy: Betty De Leon MDServgisele Date: 12/09/19 Fam Phy:Interpreting Phy: Anthony Carrasco MD Admit Phy: Ordering Phy: Victor Manuel Lerma D.O. cc: ~ SINGLE VIEW CHEST CLINICAL HISTORY: Atypical chest pain. FINDINGS: An AP, portable, upright chest radiograph is compared to study dated 07/08/2010. The heart is top normal for projection. The mediastinal contour is within normal limits. The lungs and pleural spaces are clear. No pneumothorax is seen. The bony thorax is grossly intact. IMPRESSION: No active disease in the chest. ACT 112: Negative or not required by law. Electronically signed by: Anthony Carrasco M.D. 12/09/2019 1:42 PM Dictated: 12/09/19 1341 Transcribed: 12/09/19 1341 Code Status & VTE Plan Code Status Full code VTE Prophylaxis Plan VTE Prophylaxis will be ordered: Yes Critical Care Time Critical Care Time: Yes Total Critical Care Time: 40 Total critical care time was 40 minutes PG Care Time/CCT Total # of Minutes Spent Total Time Spent with Patient: Total time spent is greater than 50% in coordination of care (as documented) at patient's floor/unit and/or counseling patient: Critical Care Time: Yes Total Critical Care Time: 40 Coding Level of Care Code 63868 Initial Inpt Care Lvl 3 Diagnoses Inferior OR I21.19 ST elevation (STEMI) myocardial infarction involving right coronary artery I21.11 Admitted to intensive care unit Z78.9 Additional Codes Critical Care Time - Critical Care Time: Yes ([id number]) Time Spent (min) 40
[2019-12-09] MEDS: METOPROLOL TARTRATE 25 MG TAB PO SCH (21:07)
--- NOTE | 2019-12-09 21:09 | Critical Care Consultation ---
Date of Consultation December 09, 2019 Assessment & Plan (1) Admitted to intensive care unit: Impression: 54-year-old male with inferior STEMI, status post PCI x3 to proximal and distal RCA. Neuro - CAM ICU: Negative Cardiac - STEMI/CADstatus post successful PCI x3 with 1 JUNG to proximal RCA and 2 JUNG to distal RCA, chest pain relieved following procedure -Loaded with Brilinta 180 mg -Dual antiplatelet therapy for 1 year -Trending troponins for peak -Follow-up echo in a.m. -Continue aspirin, Brilinta, Lipitor, MTP, lisinopril -Consult to cardiac rehab -Maximize electrolytes -Continue to monitor on telemetry Respiratory - No history respiratory disease, maintaining sats on room air, continuous pulse oximetry monitoring GI - Heart healthy diet RENAL/LYTES - Creatinine stable Monitor routine BMPs and maximize electrolytes - Strict I's and O's ENDO - No history of diabetes or thyroid disease Follow-up hemoglobin A1c and TSH ICU hyperglycemic protocol HEME - H&H stable, monitor routine CBCs ID - No indication for infectious process at this time LINES/IV ACCESS - Peripheral IVs DVT PROPHYLAXIS - SCDs Thank you for allowing us to participate in the care of this patient. Please refer to my attending physician's documentation for any further recommendations. (2) Inferior IL: (3) ST elevation (STEMI) myocardial infarction involving right coronary artery: (4) CAD (coronary artery disease): History of Present Illness Attending Physician: Kris Black MD History of Present Illness Patient is a 54-year-old male without past medical history who presented to the emergency department earlier today with shortness of breath, dyspnea, and tightness of chest. His EKG showed inferior ST elevation. Heart alert was initiated patient was taken to the [facility] where he received successful PCI x3 with 1 proximal for 90% stenosis and 2 distal stents for 100% occlusion in the RCA. Patient experienced relief of symptoms post cath. He is admitted to the ICU for further monitoring following STEMI with PCI. Currently patient denies headache, dizziness, syncope, shortness of breath, chest pain, palpitations, abdominal pain, nausea or vomiting. He denies recent illness, fevers, sore throat. Allergies Allergy/AdvReac Type Severity Reaction Status Date / Time No Known Allergies Allergy Unverified 06/26/16 06:46 Home Medications Home Medications Medication Instructions Recorded Confirmed Type multivitamin 1 tab PO QAM 07/11/20 07/11/20 History Patient History Social History Preferred Language: Syriac Communication Ability: Effective Supervisor Education Required: No Beliefs That Will Affect Care: None Current Living Situation: Spouse Other Information That Helps Us Care for You: No Feels Safe at Home: Yes Safety Concerns: Feels Safe At This Time Smoking Status: Never smoker Do You Dip or Chew Tobacco: No ; Second Hand Exposure: No ; Tobacco Cessation Education Requested by Patient: No Hx Alcohol Use: Yes Hx Substance Use: No Review of Systems Review of Systems: All systems reviewed & are unremarkable except as noted in HPI & below Physical Exam Constitutional: cooperative and comfortable Eyes: PERRL, conjunctivae normal, anicteric sclerae ENMT: external ear and nose normal, oropharynx normal Neck: trachea midline, no thyromegaly Respiratory: normal respiratory effort, lungs clear to auscultation Cardiovascular: RRR, no murmur, no edema Gastrointestinal (Abdomen): normal bowel sounds, soft, nontender, no hepatosplenomegaly Musculoskeletal: no cyanosis or clubbing, extremities motor strength 5/5 Skin: no rashes, warm and dry Neurologic: PERRL, EOMI, accommodation nl, no face palsy, no dysarthria Psychiatric: A+Ox3, euthymic affect Results & Data Results & Data ([facility]) Vital Signs (Past 12 Hours) Vital Signs Temp Pulse Pulse Resp BP BP Pulse Ox 12/09/19 20:59 56 L 18 145/88 H 98 12/09/19 19:59 36.7 C 56 L 18 139/82 96 12/09/19 18:12 54 L 20 127/82 98 12/09/19 17:57 57 L 13 133/79 97 12/09/19 17:42 60 19 137/82 97 12/09/19 17:27 59 L 14 134/85 96 12/09/19 17:12 85 21 116/67 97 12/09/19 16:57 77 20 154/62 H 96 12/09/19 16:41 65 20 126/82 97 12/09/19 16:28 77 20 122/94 97 12/09/19 16:12 60 23 128/85 95 12/09/19 16:00 60 19 96 12/09/19 15:57 82 24 142/97 H 96 12/09/19 15:45 70 21 95 12/09/19 15:42 79 17 125/82 95 12/09/19 15:26 78 18 126/84 96 12/09/19 15:12 36.9 C 81 23 136/73 94 12/09/19 13:30 67 18 12/09/19 13:26 61 17 146/99 H 97 12/09/19 13:24 66 16 95 12/09/19 13:14 36.6 C 62 16 140/92 97 Coding Level of Care Code 62375 Office/OBS Consult Lvl 5 Diagnoses Admitted to intensive care unit Z78.[address] [place] [address]21[address]19 ST elevation (STEMI) myocardial infarction involving right coronary artery I21.11 CAD (coronary artery disease) I25.10
[2019-12-09] MEDS: TICAGRELOR 90 MG TAB PO SCH (23:09)
[2019-12-10 03:09] LABS: Basophils # (auto) 0.02 K/uL (0-0.2); Basophils % (auto) 0.2 %; Eosinophils # (auto) 0.17 K/uL (0-0.5); Hematocrit (blood only) 42.3 % (42-52); Immature Granulocytes # (auto) 0.02 K/uL (0.00-0.02); Immature Granulocytes % (auto) 0.2 %; Lymphocytes # (auto) 1.75 K/uL (1.2-3.4); Mean Corpuscular Hemoglobin 29.4 pg (25-34); Mean Corpuscular Hgb Conc 33.1 g/dL (32-36); Mean Corpuscular Volume 88.7 fL (80-100); Mean Platelet Volume 10.3 fL (7.4-10.4); Monocytes # (auto) 0.76 K/uL (0.11-0.59); Monocytes % (auto) 9.1 %; Neutrophils # (auto) 5.63 K/uL (1.4-6.5); Neutrophils % (auto) 67.5 %; Platelet Count 146 K/uL (130-400); RDW Coefficient of Variation 13.2 % (11.5-14.5); RDW Standard Deviation 42.6 fL (36.4-46.3); Red Blood Count 4.77 M/uL (4.7-6.1); White Blood Count 8.35 K/uL (4.8-10.8)
[2019-12-10 03:25] LABS: BUN Creatinine Ratio 16.3 (10-20); Calcium 8.5 mg/dl (8.5-10.1); Creatinine Clr Calc Pharmacy 106.9 ml/min; Est GFR (African American) 113.1; Est GFR (Non-African American) 97.6; Potassium 3.9 mmol/L (3.5-5.1)
[2019-12-10 06:10] LABS: Basophils # (auto) 0.02 K/uL (0-0.2); Basophils % (auto) 0.3 %; Eosinophils # (auto) 0.17 K/uL (0-0.5); Eosinophils % (auto) 2.3 %; Hematocrit (blood only) 42.1 % (42-52); Hemoglobin 14.4 g/dL (14.0-18.0); Immature Granulocytes # (auto) 0.02 K/uL (0.00-0.02); Immature Granulocytes % (auto) 0.3 %; Lymphocytes # (auto) 1.39 K/uL (1.2-3.4); Lymphocytes % (auto) 18.9 %; Mean Corpuscular Hemoglobin 30.5 pg (25-34); Mean Corpuscular Hgb Conc 34.2 g/dL (32-36); Mean Corpuscular Volume 89.2 fL (80-100); Mean Platelet Volume 10.6 fL (7.4-10.4); Monocytes # (auto) 0.58 K/uL (0.11-0.59); Monocytes % (auto) 7.9 %; Neutrophils # (auto) 5.16 K/uL (1.4-6.5); Neutrophils % (auto) 70.3 %; Platelet Count 148 K/uL (130-400); RDW Coefficient of Variation 13.3 % (11.5-14.5); RDW Standard Deviation 43.8 fL (36.4-46.3); Red Blood Count 4.72 M/uL (4.7-6.1); White Blood Count 7.34 K/uL (4.8-10.8)
[2019-12-10 06:46] LABS: Magnesium 2.2 mg/dl (1.8-2.4); Phosphorus 3.2 mg/dl (2.5-4.9)
[2019-12-10] MEDS: METOPROLOL TARTRATE 25 MG TAB PO SCH ×2 (07:26→20:06)
[2019-12-10] MEDS: TICAGRELOR 90 MG TAB PO SCH ×2 (07:26→20:06)
[2019-12-10] MEDS: ATORVASTATIN 40 MG TAB PO SCH (07:27)
[2019-12-10] MEDS: ASPIRIN 81 MG ECTAB PO SCH (07:27)
[2019-12-10] MEDS: lisinopriL 5 MG TAB PO SCH (07:27)
--- NOTE | 2019-12-10 10:32 | Cardiology Progress Note ---
Date of Service December 10, 2019 Assessment & Plan (1) ST elevation (STEMI) myocardial infarction involving right coronary artery: Post primary PCI to RCA with 3 total drug-eluting stents 2. Moderate non-culprit coronary artery [id number] to 40% left main, 40-50% mid circumflex 3. Mild LV dysfunction, EF 45 to 50% with inferior wall motion abnormality 4. Dyslipidemia 5. Sinus bradycardia Stable post procedure day 1 No additional chest pain. Troponin has peaked. Hemodynamically and electrically stable. No access site complications. Stable post procedure hemoglobin, renal function Mild LV dysfunction. No signs of heart failure on exam. Continue DAPT with aspirin, ticagrelor for 1 year Continue high intensity statin Continue current metoprolol, lisinopril. Transition to Toprol-XL on discharge. Okay with current sinus bradycardia From a cardiac standpoint okay with transfer to telemetry today. Likely home tomorrow. Admission and Anticipated Discharge Date Admission Date: December 09, 2019 Subjective Feeling well today. No chest pain. No shortness of breath. Telemetry reviewedsinus bradycardia otherwise no significant arrhythmia Echo reviewedEF 45 to 50%, inferior wall motion abnormality. Troponin peaked at 15. Lipid panel total cholesterol 209, triglycerides 497, HDL 27 Review of Systems Review of Systems: All systems reviewed & are unremarkable except as noted in HPI & below Physical Exam Physical Exam: General: Appears comfortable HEENT: Sclerae anicteric, mucous membranes moist Lungs: Clear to auscultation bilaterally, no rhonchi or wheezes Cardiac: Regular rate and rhythm, no murmurs. Abdomen: Soft, nontender, nondistended, positive bowel sounds. Extremities: Warm, well perfused, no edema. Right radial artery access site with no ecchymosis, hematoma. Distal pulse and sensation intact. Skin: No rashes or lesions. Neuro: Nonfocal Psych: Alert orient x3, normal affect and mood Results & Data ([facility]) Vital Signs (Past 12 Hours) Vital Signs Temp Pulse Resp BP Pulse Ox 12/10/19 08:00 99 12/10/19 07:13 98.2 F 54 L 18 117/76 95 12/10/19 07:00 58 L 12/10/19 06:13 49 L 14 117/75 96 12/10/19 05:13 45 L 16 123/76 97 12/10/19 04:12 98.6 F 47 L 13 117/76 97 12/10/19 03:32 47 L 14 115/74 98 12/10/19 02:13 66 16 118/75 94 12/10/19 01:12 53 L 13 117/70 96 12/10/19 00:12 98.1 F 49 L 16 114/73 95 12/09/19 23:12 53 L 14 134/80 96 PG Care Time/CCT Total # of Minutes Spent Total Time Spent with Patient: Total time spent is greater than 50% in coordination of care (as documented) at patient's floor/unit and/or counseling patient: Coding Level of Care Code 99290 Subseq Hosp Care Lvl [address] elevation (STEMI) myocardial infarction involving right coronary artery I21.11
--- NOTE | 2019-12-10 12:29 | Electrocardiogram Report ---
Test Reason : Blood Pressure : / mmHG Vent. Rate : 057 BPM Atrial Rate : 057 BPM P-R Int : 142 ms QRS Dur : 092 ms QT Int : 404 ms P-R-T Axes : 037 012 066 degrees QTc Int : 393 ms Sinus bradycardia with sinus arrhythmia Inferior infarct , possibly acute ACUTE TX / STEMI Abnormal ECG When compared with ECG of 19-JUN-2016 09:42, Inferior infarct is now Present ST elevation now present in Inferior leads ST now depressed in Lateral leads Confirmed by Adriel Andrews ([id number]) on 12/10/2019 12:29:05 PM Referred By: REFERRED SELF Confirmed By:Adriel Andrews
--- NOTE | 2019-12-10 13:04 | Electrocardiogram Report ---
Test Reason : Blood Pressure : / mmHG Vent. Rate : 048 BPM Atrial Rate : 048 BPM P-R Int : 146 ms QRS Dur : 086 ms QT Int : 444 ms P-R-T Axes : 039 -17 -29 degrees QTc Int : 396 ms Sinus bradycardia Serial changes of evolving Inferior infarct (cited on or before 09-DEC-2019) Abnormal ECG When compared with ECG of 09-DEC-2019 13:21, (unconfirmed) Serial changes of evolving Inferior infarct Present Confirmed by Adriel Andrews ([id number]) on 12/10/2019 1:04:24 PM Referred By: REFERRED SELF Confirmed By:Adriel Andrews
--- NOTE | 2019-12-10 16:20 | Hospitalist Progress Note ---
Date of Service December 10, 2019 Assessment & Plan (1) Inferior MO: STEMI involving right coronary artery/inferior MO- Patient status post cardiac catheterization for RCA 90% proximal lesion and distal occlusion. Status post 1 proximal and 2 distal stent deployments. A1c pending Lipid panel only partial due to elevated TG at 497, HDL 27 High-dose statin, aspirin and Brilinta as noted Stable for transfer to [facility] (2) ST elevation (STEMI) myocardial infarction involving right coronary artery: See above (3) Admitted to intensive care unit: Patient was admitted to intensive care unit for follow-up of cardiac catheterization with deployment of [address] Bobo Dobbs, interventional cardiology. Consult to professor of chemistry Dr. Pedro Biggs. Admission and Anticipated Discharge Date Admission Date: December 09, 2019 Subjective Pt feels fine today. No further chest pain. No SOB. Pt denies fever, abd pain, n/v/c/d, LE pain or swelling. Review of Systems Review of Systems: Pertinent positives and negatives reviewed in HPI--all others negative Physical Exam Constitutional: WD/WN, vitals as above Eyes: normal visual lyons by confrontation and + anicteric sclerae Neck: normal visual inspection and trachea midline Respiratory: normal respiratory effort, lungs clear to auscultation Cardiovascular: Rate/Rhythm: regular rate and regular rhythm Gastrointestinal (Abdomen): Inspection/Auscultation: abdomen not distended Percussion/Palpation: abdomen soft; abdomen nontender Musculoskeletal: Head/Neck/Chest: normocephalic and head atraumatic negative for edema, peripheral pulses intact Skin: no rashes, warm and dry Neurologic: awake; not confused Speech / Cognition: normal speech Psychiatric: A+Ox3, euthymic affect Results & Data Results & Data ([facility]) Vital Signs (Past 12 Hours) Vital Signs Temp Pulse Resp BP Pulse Ox 12/10/19 15:38 36.9 C 58 L 18 99/67 L 95 12/10/19 13:49 63 12/10/19 11:46 36.9 C 59 L 14 140/80 97 12/10/19 09:41 61 22 135/79 96 12/10/19 08:00 99 12/10/19 07:13 36.8 C 54 L 18 117/76 95 12/10/19 07:00 58 L 12/10/19 06:13 49 L 14 117/75 96 12/10/19 05:13 45 L 16 123/76 97 PG Care Time/CCT Total # of Minutes Spent Total Time Spent with Patient: Total time spent is greater than 50% in coordination of care (as documented) at patient's floor/unit and/or counseling patient: Coding Level of Care Code 77763 Subseq Hosp Care Lvl 3 Diagnoses Inferior MO I21.19 ST elevation (STEMI) myocardial infarction involving right coronary artery I21.11 Admitted to intensive care unit Z78.9
[2019-12-11 06:21] LABS: Estimated Average Glucose 114 mg/dl; Hemoglobin A1C 5.6 % (4.5-5.6)
[2019-12-11 07:18] LABS: BUN Creatinine Ratio 14.4 (10-20); Calcium 8.5 mg/dl (8.5-10.1); Est GFR (African American) 94.3; Est GFR (Non-African American) 81.4
[2019-12-11] MEDS: lisinopriL 5 MG TAB PO SCH (08:36)
[2019-12-11] MEDS: ATORVASTATIN 40 MG TAB PO SCH (08:37)
[2019-12-11] MEDS: METOPROLOL TARTRATE 25 MG TAB PO SCH (08:37)
[2019-12-11] MEDS: TICAGRELOR 90 MG TAB PO SCH (08:37)
[2019-12-11] MEDS: ASPIRIN 81 MG ECTAB PO SCH (08:37)
[2019-12-11] MEDS ORDERED: MULTIVITAMIN TAB PO SCH (09:00)
--- NOTE | 2019-12-11 14:14 | Discharge Summary ---
Date of Service December 11, 2019 Admission HPI Per Admitting Provider The patient is a 54-year-old male with no significant past medical history who presented to the emergency department the above symptoms. He was taken emergently to the [facility] by Dr. Bobo Dobbs, where 1 proximal and 2 distal stents were placed in the RCA, and the patient was then admitted to the ICU symptom-free. Principal Diagnosis STEMI, Inferior Discharge Exam Constitutional WD/WN, vitals as above Eyes + anicteric sclerae Neck trachea midline, no thyromegaly Respiratory normal respiratory effort, lungs clear to auscultation Cardiovascular RRR, no murmur, no edema Chest (Breasts) Chest: normal inspection of chest Gastrointestinal (Abdomen) normal bowel sounds, soft, nontender, no hepatosplenomegaly Musculoskeletal Extremities: + extremities abnormal to inspection (rt wrist with dressing in place,no hematoma), no cyanosis and no clubbing Skin no rashes, warm and dry Neurologic moves all extremities and awake; no focal motor deficits Psychiatric A+Ox3, euthymic affect Lymphatic no lymphedema Discharge Data Allergies Allergy/AdvReac Type Severity Reaction Status Date / Time No Known Allergies Allergy Unverified 06/26/16 06:46 Consultations 12/09/19 15:20 Consult Cardiac Rehabilitation Routine Consult Case Management - Discharge Planning Routine Consult Tdp Displays Analyst Routine ED Decision to Admit Stat Procedures Performed Operation Date: 12/09/19 13:35 Actual Procedures p Aspiration/PCI w/JUNG for Stemi - Balaji Dobbs MD s Cath, Left with Cors and Vent - Balaji Dobbs MD s Cineradiography w/Routine Exam - Balaji Dobbs MD Ordered Studies 12/09/19 13:33 CL Cath Imgs for PACS use only Stat CXR ECHO Hospital Course (1) Inferior DE: STEMI involving right coronary artery/inferior DE- Patient status post cardiac catheterization for RCA 90% proximal lesion and distal occlusion. Status post 1 proximal and 2 distal stent deployments. Doing well now 48 hours later, no events on tele, no chest pain or evidence of CHF No problems with radial cath site -stable for dc to home -continue DAPT with ASA, Brilinta -started atorvastatin 80mg daily, needs f/u LFs and lipids in 6 weeks -started metoprolol 12.5mg po bid nad lisinopril 5mg daily Lipid panel only partial due to elevated TG at 497, HDL 27, TChol 209, LDL could not be measured F/u as outpt in 2 weeks with Cardiology, will need cardiac rehab most likely Limitations given for light activity and out of work x 1 week at least Heart healthy diet (2) ST elevation (STEMI) myocardial infarction involving right coronary artery: See above (3) Impaired fasting glucose: Fasting glucose 105, HgbA1C here borderline at 5.6% Advised low-carb diet and weight loss follow as outpt with PCP (4) Mildly obese: BMI 32.8 counseled on weight loss and low carb diet as above (5) Hyperlipidemia: As above hypertriglyceridemia and low HDL, LDL could not be measured -started on statin f/u lipids nad LFTs in 6 weeks Dispo-stable for dc to home today after seen by Cardiology-discussed case with Cardiology and RN Total Time Total Time Spent Total Time Spent (In Minutes): >30 min Total Time Includes: Examination of the Patient, Discharge Planning, Medication Reconciliation and Communication With Other Providers Discharge Plan Discharge Items Patient Disposition: Home - Self-Care Reason For Visit: STEMI Discharge Diagnosis: STEMI Condition on Discharge: Good Activity: As commented below Driving/Machine Use: Resume 3 days after discharge Non-emergency contact: Primary Care Provider and Religion Instructor Call non-emergency contact if: you have any medication questions, your symptoms worsen, your pain is not controlled, your pain is worsening, your wound has increased redness, your wound has increased drainage and your wound pain has increased Follow-up/Referrals: Balaji Dobbs MD [Physician] - 12/26/19 9:45 am (Please, follow up with Dr. Kev Dobbs on WednesdayDecember 25 at 10:00 am (arrive 9:45 am). *The office is located in [address] of [facility], next to [facility]. If you need to change this appointment, call the office at [phone].) Betty De Leon [Primary Care Provider] - 12/15/19 9:30 am (Please, follow up with Dr. De Leon on WednesdayDecember 14 at 9:30 am. *If you need to change this appointment, call the office at [phone].) Diet: Heart Healthy Diet Comment: Mediterranean Diet Addtl Attending Provider Instructions: Home Care: * Take your medications exactly as directed. Don't skip doses. * Remember that recovery after a heart attack takes time. Plan to rest for at lease 4-8 weeks while you recover. Then return to normal activity when your doctor says it's okay. * Ask your doctor about joining a heart rehabilitation program. * Tell your doctor if you are feeling depressed. Feelings of sadness are common after a heart attack, but it is important that you speak to someone if you are feeling overwhelmed by these feelings. * If you are having chest pain, call 911 for an ambulance. Do NOT drive yourself to the hospital. * Ask your family members to learn CPR. * Learn to take your own blood pressure and pulse. Keep a record of your results. Ask your doctor when you should seek emergency medical attention. H e or she will tell you which blood pressure reading is dangerous. Lifestyle Changes: * Maintain a healthy weight. Get help to lose any extra pounds. * Cut back on salt. * Limit canned, dried, packaged, and fast foods. * Don't add salt to your food. * Season foods with herbs instead of salt when you cook. * Break the smoking habit. Enroll in a stop-smoking program to improve your chances of success. * Limit fatty foods. * Ask your doctor about having your lipid levels checked regularly. * Build up your activity according to your doctor's recommendation. * Ask your doctor when it's okay to resume sexual activity. * Tell your doctor about any erectile dysfunction (ED) medication you are taking. Some ED medications are not safe if you take certain heart medications. * Try to manage stress. Follow Up: It is important for you to keep your follow up appointments with your medical provider. ACTIVITY RECOMMENDATIONS: Excess manipulation of the wrist should be avoided for the next 24-48 hours. * No lifting over 2 pounds (approximately a 1/2 gallon of milk) with the utilized arm for 24 hours. * No strenuous activity such as bowling or tennis for 3 days. * Keep the site of the procedure covered with a bandage for 24 hours. *You may shower the day after the procedure. Do not take a tub bath or submerge the puncture site in water for the next 3 days. *Do not operate any motorized equipment for 3 days. SPECIAL CARE INSTRUCTIONS: The site may be slightly bruised and sore following your procedure. Should any of the following occur, contact the Dr. who performed your procedure. 1. Redness/inflammation, swelling, chills, or fever, or colored drainage at procedure site within 3-7 days after your procedure. 2. Coldness, discoloration, ongoing numbness, severe pain, or swelling. Expect mild tingling of hand and tenderness at the puncture site for up to three days. If this persists beyond three days, or other symptoms develop, notify the Dr. who performed your procedure. BLEEDING: If the procedure site on your wrist begins to bleed, do not panic 1. Place 1 or 2 fingers firmly just slightly above the insertion site to stop the bleeding. You may be able to feel your pulse as you hold pressure. 2. Lift your finger after 5 minutes to see if the bleeding has stopped. 3. Once the bleeding has stopped, gently wipe the wrist area clean with a bandage. * If the bleeding from your wrist does not stop after 10 minutes, or if there is a large amount of bleeding or spurting, call 911 (do not drive yourself to the hospital). SKIN IRRITATION: * You may experience some redness and/or swelling in the area where radiation was administered. If any skin irritation occurs, please contact your family physician. FOLLOW UP VISIT: Keep any scheduled doctor appointments. Pending Studies at Discharge: No Stand-Alone Forms: My [facility] Medications and DC Order Prescriptions: New Brilinta 90 mg Tablet 90 mg PO BID Qty: 60 RF: 0 atorvastatin 80 mg tablet 80 mg PO DAILY Qty: 30 RF: 0 lisinopril [Zestril] 5 mg Tablet 5 mg PO QAM Qty: 30 RF: 0 metoprolol tartrate 25 mg Tablet 12.5 mg PO BID Qty: 30 RF: 0 aspirin 81 mg Tablet,Delayed Release (Dr/Ec) 81 mg PO QAM Qty: 30 RF: 0 Continued multivitamin Tablet 1 tab PO QAM RF: 0 Discharge Orders: Discharge Order (Routine); Ordered 12/11/19 Ordered By: Carmencita Mcnair Admission Data Admit Date/Time: 12/09/19 15:20 Attending Provider: Carmencita Mcnair Admit Provider: Kris Black Primary Care Provider: Betty De Leon Other Providers: Kris Black ; Pedro Biggs Coding Level of Care Code D/C Day Management >30 mins Diagnoses Inferior DE I21.19 ST elevation (STEMI) myocardial infarction involving right coronary artery I21.11 Impaired fasting glucose R73.01 Mildly obese E66.9 Hyperlipidemia E78.5
--- NOTE | 2019-12-11 14:31 | Cardiology Progress Note ---
Date of Service December 11, 2019 Assessment & Plan (1) ST elevation (STEMI) myocardial infarction involving right coronary artery: Post primary PCI to RCA with 3 total drug-eluting stents 2. Moderate non-culprit coronary artery to 40% left main, 40-50% mid circumflex 3. Mild LV dysfunction, EF 45 to 50% with inferior wall motion abnormality 4. Dyslipidemia 5. Sinus bradycardia Feeling well. Ok with discharge today. Home on DAPT with aspirin, ticagrelor for 1 year Continue high intensity statin Continue current metoprolol, lisinopril. Follow-up with me in 2 weeks. Discuss cardiac rehab at that time. Admission and Anticipated Discharge Date Admission Date: December 09, 2019 Subjective Feeling well. No chest pain. No other new complaints. Review of Systems Review of Systems: All systems reviewed & are unremarkable except as noted in HPI & below Physical Exam Physical Exam: General: Appears comfortable HEENT: Sclerae anicteric, mucous membranes moist Lungs: Clear to auscultation bilaterally, no rhonchi or wheezes Cardiac: Regular rate and rhythm, no murmurs. Abdomen: Soft, nontender, nondistended, positive bowel sounds. Extremities: Warm, well perfused, no edema. Right radial artery access site with no ecchymosis, hematoma. Distal pulse and sensation intact. Skin: No rashes or lesions. Neuro: Nonfocal Psych: Alert orient x3, normal affect and mood Results & Data ([facility]) Vital Signs (Past 12 Hours) Vital Signs Temp Pulse Resp BP Pulse Ox 12/11/19 14:14 97.7 F 63 18 96/69 L 97 12/11/19 11:37 97.7 F 63 18 96/69 L 97 12/11/19 08:31 98.1 F 66 18 105/70 97 12/11/19 04:31 98.1 F 59 L 18 108/69 99 PG Care Time/CCT Total # of Minutes Spent Total Time Spent with Patient: Total time spent is greater than 50% in special education coordinator rdination of care (as documented) at patient's floor/unit and/or counseling patient: Coding Level of Care Code 59729 Subseq Hosp Care Lvl [address] elevation (STEMI) myocardial infarction involving right coronary artery I21.11
== END 2019-12-11 14:30 | disposition home or self-care (01) | DRG 247 ==
LOC: ED 13:13 → CC 13:50 → 1E 15:20 → SUATTDRO 15:20 → 2S 12-10 13:28